=== PATIENT | female | born 1960 | race Two or more races ===

== ENCOUNTER 2019-05-09 23:14 | Emergency (ER) | payer OTHER ==
[~2019-05-09] VITALS: Ht 165.1 cm; Wt 59.9 kg
--- NOTE | 2019-05-09 23:23 | NUR ---
BIBS. C/O "HAVING RASH X4 DAYS. +DIZZINESS X4 DAYS" -NEURO DEFITICS. VSS. AOX4. AMBULATORY, PT AWAKE, ALERT, -SOB, NAD NOTED, VSS, PENDING MD TRIMBLE
[2019-05-10] MEDS ORDERED: CLOBETASOL 0.05% CREAM 15 GM TUBE TP SCH
[2019-05-10 00:05] LABS: BASOPHILS % (AUTO) 0.8 % (0.0-2.0); EOSINOPHILS % (AUTO) 2.9 % (0.0-6.0); HEMATOCRIT 40 % (33-45); HEMOGLOBIN 12.9 g/dL (11.5-14.8); LYMPHOCYTES # (AUTO) 1.9 /CMM (0.8-4.8); MEAN CORPUSCULAR HGB CONC 33 g/dl (31.0-36.0); MEAN CORPUSCULAR VOLUME 79 fL (82-100); MONOCYTES # (AUTO) 0.6 /CMM (0.1-1.30); MONOCYTES % (AUTO) 10.7 % (2.0-12.0); NEUTROPHILS # (AUTO) 3.3 /CMM (1.8-8.9); NEUTROPHILS % (AUTO) 54.6 % (43.0-81.0); PLATELET COUNT (AUTO) 501 /CMM (150-450); RED BLOOD CELL COUNT(AUTO) 5.04 MIL/uL (4.0-5.2)
[2019-05-10 00:33] LABS: CALCIUM, SERUM 8.7 mg/dL (8.5-10.1); CREATININE 0.8 mg/dL (0.6-1.3); POTASSIUM 3.9 mmol/L (3.5-5.1)
[2019-05-10 01:48] VITALS: BP 123/75
--- NOTE | 2019-05-10 01:48 | NUR ---
Patient discharged to home in stable condition. Written and verbal after care instructions given. Patient verbalizes understanding of instruction.
== END 2019-05-10 01:49 | disposition home or self-care (01) ==
LOC: ER 23:18
DX: R21 Rash and other nonspecific skin eruption (principal); R42 Dizziness and giddiness; Z88.1 Allergy status to other antibiotic agents
CPT/HCPCS: 36415; 80048-TC; 85025-TC